=== PATIENT | female | born 1955 | race Caucasian/White ===

== ENCOUNTER 2025-10-06 10:34 | Emergency (ER) | payer OTHER, SELFPAY ==
--- NOTE | ~2025-10-06 | XR_ITS ---
EXAMINATION: XR HAND 3 OR MORE VIEWS RIGHT HISTORY: r/o FB - broken glass in lacs COMPARISON: There are no prior studies available for comparison. FINDINGS: Three views of the left hand are submitted. The bones are osteopenic. There is no fracture or dislocation. 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 The soft tissues are unremarkable. There is an ovoid density adjacent to the volar aspect of the neck of the 3rd proximal phalanx. XR/XR hand RT min 3V IMPRESSION: Ovoid density adjacent to the volar aspect of the neck of the 3rd proximal phalanx which could represent a foreign body. Clinical correlation is recommended. Electronically signed by: Herb Colbert MD 10/06/2025 11:10 AM HALLIE CONRAD
[2025-10-06 10:39] VITALS: BP 152/76; PULSE 92; RESP 16; TEMP 36.1; O2SAT 100; BMI 21.6
--- NOTE | 2025-10-06 10:44 | ED_ITS ---
HPI - Wound/Laceration General Chief Complaint: Wound/Laceration Stated Complaint: multiple hand lacs from glass canister Time Seen by Provider: 10/06/25 11:39 Source: patient, RN notes reviewed and old records reviewed Mode of arrival: ambulatory Limitations: no limitations History of Present Illness ED Provider: SARAY Lara HPI narrative: 69-year-old female with medical history of T2DM, presents to the ED due to laceration of the left hand. Patient states she was preparing a glass trochanter for a [employer] republican tonight when that began after fell off the counter and she attempted to catch it with the trochanter shattering in her hand. Patient states she does not know when her last tetaus shot was but saw her primary care a few weeks ago for physical and they did not tell her she needed Immunizations. Patient denies chest pain, shortness of breath, abdominal pain, nausea, vomiting, diarrhea, urinary symptoms Related Data Previous Rx's ?Medication ?Instructions ?Recorded cephalexin 500 mg capsule 500 mg PO QID 7 days #28 cap s 10/06/25 Allergies Allergy/AdvReac Type Severity Reaction Status Date / Time No Known Allergies Allergy Mild NKA Verified 10/06/25 10:42 Review of Systems 2 Review of Systems: Yes all other systems are reviewed and are negative PMFSH Social History Social History Advance Directives: No Advance Directives Information Provided: Yes Physical Exam 2 Vital Signs: Vital Signs: Last Vital Signs Temp 97.0 F 10/06/25 10:39 Pulse 92 10/06/25 10:39 Resp 16 10/06/25 10:39 BP 152/76 H 10/06/25 10:39 Pulse Ox 100 10/06/25 10:39 O2 Del Method Room Air 10/06/25 10:39 BMI result Body Mass Index 21.6 GENERAL APPEARANCE: ?AxOx4, generally well-appearing, no acute distress. HEENT: ?NC, AT. MMM. EOMI, clear conjunctiva, oropharynx clear. NECK: ?Supple without lymphadenopathy.? No stiffness or restricted ROM. HEART:? Normal rate and regular rhythm, normal S1/S2, no m/r/g LUNGS:? CTAB, moving air well. ABDOMEN: ?Soft, nontender, nondistended EXTREMITIES: ?Without cyanosis, clubbing or edema. L hand with superficial laceration over the palmar aspect with scant bleeding, small superficial laceration over the palmar aspect of the 1st digit, small superficial laceration of the proximal 4th digit, and 5th digit, the hand is neurovascularly intact, radial pulses 2+, no numbness or tingling to the areas of laceration, the cuts are very superficial, I am not concerned for damage of the deeper structures. NEUROLOGICAL: ?Grossly nonfocal. Alert and oriented, moving all 4 extremities. Observed to ambulate with normal gait. Skin: ?Warm and dry without any rash. Course Course Course Narrative: This is a Rapid Medical Exam performed in triage by Tiffanie Norris PA-C. Full HPI, ROS and PE to be performed by primary ED provider. 69-year-old female presenting to the ED c/o multiple lacerations to left hand s/p grabbing broken decanter [employer]. Concerned about retained glass/foreign body. Tetanus up-to-date. Takes baby ASA PE: Multiple small lacerations noted to left palm. Possible retained glass. Neurovascularly intact Plan: X-ray, wound repair Medical Decision Making Medical Decision Making MDM Narrative: 69-year-old female with medical history of T2DM, presents to the ED due to laceration of the left hand. Patient states she was preparing a glass decanter for a [employer] republican tonight when that began after fell off the counter and she attempted to catch it with the trochanter shattering in her hand. Patient states she does not know when her last tetanus shot was but saw her primary care a few weeks ago for physical and they did not tell her she needed Immunizations. VS on initial observation - BP 152/76, pulse rate of 92, respiratory rate of 16, afebrile with oral temp of 97?, O2 saturation 100% on room air. On physical exam there are multiple superficial lacerations of the palmar aspect of the left hand with scant bleeding, full ROM intact, SILT, the limb is neurovascularly intact, 2+ radial pulses XR imaging of the left hand negative for fracture, however there is a small ovoid anomaly seen on the volar aspect of the 3rd proximal phalanx that may represent a foreign body 69-year-old patient that is sustained for superficial hand lacerations after attempting to catch a glass decanter off of the countertop. x-ray reveals small over anomaly seen at the volar aspect of the 3rd proximal phalanx however patient does not have a laceration over this area, and is not tender over this area so foreign body is less likely. Patient will have tetanus shot today as she is unsure when last vaccination was. I am discharging with 7 day course of Keflex q.i.d. for bacterial coverage as the patient is diabetic. The hand was cleaned with sterile saline and iodine, and Dermabond was placed on top of the superficial lacerations. I counseled the patient to follow up with her primary care doctor And on strict ED return precautions. The patient is well enough to go home for self-care, and is in agreement with the plan. Differential Diagnosis Differential Diagnoses: The differential diagnosis associated with the presentation includes Laceration Foreign body Fracture cellulitis Admission/Observation Consideration of admission/observation: Escalation of care including admission/observation considered Independent Interpretation I performed an independent interpretation of an: Plain X-Ray Interpretation: I personally interpreted the XR L hand which revealed a small ovoid shaped anomaly of the 3rd digit, I agree with the radiologist's interpretation Radiology Impression Discussion of test interpretation with radiology: I have reviewed the radiologist's reading. Radiologist Impression: XR L hand FINDINGS: Three views of the left hand are submitted. The bones are osteopenic. There is no fracture or dislocation. 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 The soft tissues are unremarkable. There is an ovoid density adjacent to the volar aspect of the neck of the 3rd proximal phalanx. XR/XR hand RT min 3V IMPRESSION: Ovoid density adjacent to the volar aspect of the neck of the 3rd proximal phalanx which could represent a foreign body. Clinical correlation is recommended. Electronically signed by: Herb Colbert MD 10/06/2025 11:10 AM EST Dictated By: Herb Colbert MD Signed By: <Electronically signed by Herb Colbert MD in [place]> 10/06/25 1110 External Record Review External record reviewed: Inpatient record, Office record, Outpatient record and Prior outpatient labs Chronic Conditions Patient?s care impacted by: Diabetes Discharge Plan Discharge Clinical Impression: Superficial laceration Patient Disposition: Home, Self-Care Additional Instructions: You were evaluated today for superficial lacerations to the hand. The wounds were thoroughly cleaned with sterile saline and iodine, and Dermabond (skin glue) was applied. Your tetanus immunization was updated, and you have been prescribed antibiotics to help prevent infection. Medications: * Cephalexin (Keflex): Take 4 times daily (QID) for 7 days as prescribed. * Complete the full course, even if the wound looks healed. * Contact your provider if you develop a rash, severe diarrhea, or signs of an allergic reaction. Wound Care (Dermabond): * Keep the area clean and dry. * Do not apply ointments, creams, or lotions over the Dermabond. * Do not pick at or peel the glue; it will fall off on its own in about 5?10 days. * You may shower, but avoid soaking the hand (no baths, dishwashing without gloves, pools, or hot tubs). * Avoid excessive movement or strain of the hand that could reopen the wound. Activity: * Limit use of the injured hand as much as possible for the next few days. * Elevate the hand when able to help reduce swelling. Follow-Up: * Follow up with your primary care provider for wound recheck and ongoing care. Return to the Emergency Department immediately if you develop: * Increasing redness, warmth, swelling, or pain * Pus or foul-smelling drainage * Red streaking up the hand or arm * Fever or chills * Wound reopening or bleeding that does not stop Prescriptions: New cephalexin 500 mg capsule 500 mg PO QID 7 Days Qty: 28 0RF Print Language: Sami
[2025-10-06 12:58] VITALS: BP 120/74; PULSE 83; RESP 16; O2SAT 98
[2025-10-06] MEDS: Diphth,Pertus(ACell),Tet Adult 0.5 ML SYRINGE IM (13:43)
[2025-10-06 13:47] VITALS: BP 120/74; PULSE 83; RESP 16; TEMP -17.7; TEMP 0; O2SAT 98
== END 2025-10-06 13:47 | disposition home or self-care (01) ==
PROVIDERS: Emergency Provider Emergency Medicine Emergency Medical Services; PCP Nurse Practitioner Family
DX: S61.412A Laceration without foreign body of left hand, initial encounter (principal); E11.9 Type 2 diabetes mellitus without complications; W25.XXXA Contact with sharp glass, initial encounter; Y93.89 Activity, other specified; Y92.098 Other place in other non-institutional residence as the place of occurrence of the external cause; Y99.8 Other external cause status; Z79.899 Other long term (current) drug therapy
CPT/HCPCS: 73130; 90471; 90715; 99283; 99284

== ENCOUNTER → 2025-10-06 10:44 | Outpatient (BNV) | payer OTHER, SELFPAY | PROVIDERS: Emergency Provider Emergency Medicine Emergency Medical Services; PCP Nurse Practitioner Family; Visit Provider Radiology Diagnostic Radiology | DX: Z03.89 Encounter for observation for other suspected diseases and conditions ruled out (principal) | CPT/HCPCS: 73130 ==